=== PATIENT | male | born 1980 | race Caucasian/White ===

== ENCOUNTER 2018-07-24 16:15 | Emergency (ER) | payer SELFPAY ==
[~2018-07-24] VITALS: Ht 180.3 cm; Wt 83.3 kg
[2018-07-24] MEDS ORDERED: AZITHROMYCIN 250 MG TABLET PO ONE (16:30)
[2018-07-24] MEDS ORDERED: CEFTRIAXONE 250 MG IM ONE (16:30)
[2018-07-24 16:31] VITALS: BP 125/80
[2018-07-24] MEDS ORDERED: CEFTRIAXONE 250 MG ONE (16:45)
[2018-07-24] MEDS ORDERED: IBUPROFEN 200 MG TABLET ONE (16:45)
[2018-07-24] MEDS ORDERED: AZITHROMYCIN 250 MG TABLET ONE (16:48)
[2018-07-24] MEDS ORDERED: IBUPROFEN 600 MG TABLET PO ONE (17:00)
== END 2018-07-24 17:14 | disposition home or self-care (01) ==
LOC: ED 17:07
DX: A56.01 Chlamydial cystitis and urethritis (principal); A54.01 Gonococcal cystitis and urethritis, unspecified; F17.200 Nicotine dependence, unspecified, uncomplicated
CPT/HCPCS: 96372; 99283; J0696